=== PATIENT | male | born 1990 | race Caucasian/White ===

== ENCOUNTER 2023-02-08 08:30 | Outpatient (CLI) | payer BC, SELFPAY | END 2023-02-08 08:31 | disposition home or self-care (01) | LOC: NFLDREF 02-11 14:36 | PROVIDERS: PCP Family Medicine; Referring Provider Family Medicine; Visit Provider Family Medicine | DX: Z13.1 Encounter for screening for diabetes mellitus (principal); Z13.6 Encounter for screening for cardiovascular disorders | CPT/HCPCS: 80061; 82947 ==

== ENCOUNTER 2024-05-20 08:21 | Outpatient (CLI) | payer BC, SELFPAY | END 2024-05-20 08:22 | disposition home or self-care (01) | LOC: NFLDREF 05-23 08:27 | PROVIDERS: PCP Family Medicine; Referring Provider Family Medicine; Visit Provider Family Medicine | DX: E78.5 Hyperlipidemia, unspecified (principal) | CPT/HCPCS: 80061 ==

== ENCOUNTER 2025-02-26 08:35 | Outpatient (CLI) | payer BC, SELFPAY | END 2025-02-26 08:36 | disposition home or self-care (01) | LOC: NFLDREF 03-04 16:35 | PROVIDERS: PCP Family Medicine; Referring Provider Family Medicine; Visit Provider Family Medicine | DX: R74.8 Abnormal levels of other serum enzymes (principal) | CPT/HCPCS: 80061 ==

== ENCOUNTER 2025-05-16 20:38 | Emergency (ER) | payer OTHER, BC, SELFPAY ==
--- OUTSIDE RECORDS SUMMARY | 2025-05-14 18:14 | XMS_ITS | Encounter Summary ---
Author Organization [facility] Address [address] [place] [address] Care Team Providers Care Transformation Consultant Name Role Phone [facility]- Primary Care Provider Reason for Visit * Reason Comments Burn Encounter Details Date Type Department Care Team (Late st Contact Info) Description 05/14/2025 6:14 PM CDT - 05/14/2025 8:23 PM CDT Emergency [facility] Emergency Dept [address] [place] [address] Ashely Villa MD [facility] [address] [place] [address] Partial thickness burn of left forearm, initial encounter (Primary Dx); Superficial burn of right forearm, initial encounter; Superficial burn of chest wall, initial encounter; Partial thickness burn of face, initial encounter; Partial thickness burn of neck, initial encounter Discharge Disposition: Home or Self Care Social History Tobacco Use Types Packs/Day Years Used Date Smoking Tobacco: Every Day Cigarettes Comments:I'm only 22 gonna l juan my life to the fullest Alcohol Use Standard Drinks/Week Comments No 0 (1 standard drink = 0.6 oz pur e alcohol) Sex and Gender Information Value Date Recorded Sex Assigned at Not on file Legal Sex Male 4:23 AM BUSINESS SOLUTIONS CONSULTANT Gender Identity Not on file Sexual Orientation Not on file documented as of this encounter Last Filed Vital Signs Vital Sign Reading Time Taken Comments Blood Pressure 150/104 05/14/2025 8:10 PM CDT Pulse 79 05/14/2025 8:10 PM CDT Temperature 36.9 C (98.4 F) 05/14/2025 6:14 PM CDT Respiratory Rate 18 05/14/2025 6:14 PM CDT Oxygen Saturation 96% 05/14/2025 8:10 PM CDT Inhaled Oxygen Concentration - - Weight 89.6 kg (197 lb 8.5 oz) 05/14/2025 6:14 P M CDT Height 175.3 cm (5' 9) 05/14/2025 6:14 PM CDT Body Mass Index 29.17 05/14/2025 6:14 PM CDT documented in this encounter Discharge Instructions * Discharge Instructions* Ashely Villa MD - 05/14/2025 8:12 PM CDT Keep dressings in place overnight. Then gently cleanse the area daily with water and mild soap. Apply bacitracin daily and nonstick dressing. If pain uncontrolled, fever or signs of infection (spreading redness or drainage) seek care in the emergency department right away. Take ibuprofen 600 mg 3x per day as needed for pain. This will provide both pain control and fight against inflammation. Take tylenol 1000mg 3x per day as needed for pain. Do not take more than 3000mg tylenol in 24 hours. Use oxycodone as directed as needed for additional pain control. Opioid Medication Information You have been given a prescription for an opioid (narcotic) pain medicine and/or have received a pain medicine while here in the Emergency Department. These medicines can make you drowsy or impaired.You must not drive, operate dangerous equipment, or engage in any other dangerous activities while taking these medications. If you drive while taking these medications, you could be arrested for driving under the influence (DUI). Do not drink any alcohol while you are taking these medications. Opioid pain medications can cause addiction. If you have a history of chemical dependency of any type, you are at a higher risk of becoming addicted to pain medications. Only take these prescribed medications to treat your pain when all other options have been tried. Take it for as short a time andas few doses as possible. Store your pain pills in a secure place, as they are frequently stolen and provide a dangerous opportunity for children or visitors in your house to start abusing these powerful medications. We will not replace any lost or stolen medicine. If you do not finish your medication, it is a good idea to get rid of it but please do not flush itdown the toilet. Please dispose of the remaining medication at a local pharmacy or law enforcement facility. The [place] [employer] has additional information on medication disposal: h ttps://[email or web address] electrician.[facility].or.us/living-green/clzsdxxh-rlzyrozg-ikhbhpatylu. Many prescription pain medications contain Tylenol?? (acetaminophen), including Vicodin??, Tylenol #3??, [place]??, Lortab??, and Percocet??. You should not take any extra pills of Tylenol?? if you areusing these prescription medications or you can get very sick. Do not ever take more than 3000 mg of acetaminophen in any 24 hour period. All opioids tend to cause constipation. Drink plenty of water and eat foods that have a lot of fiber, such as fruits, vegetables, prune juice, apple juice and high fiber cereal. Take a laxative if you don???t move your bowels at least every other day. Miralax??, Milk of Magnesia, Colace??, or Senna?? can be used to keep you regular. * Attachments The following attachments cannot be sent through Care Everywhere. * Tavares (South African) documented in this encounter Medications at Time of Discharge oxyCODONE (ROXICODONE) 5 MG tablet Take 1 tablet (5 mg) by mouth every 4 hours as needed for severe pain. 12 tablet 05/14/2025 albuterol (PROVENTIL) (5 MG/ML) 0.5% nebulizer solution Take 5 mg/hr by nebulization every 6 hours as needed. HYDROcodone-acet aminophen 5-325 MG per tabletIndication s:Left varicocele Take 1 tablet by mouth every 6 hours as needed for pain. 30 tablet 0 12/24/2012 ibuprofen (ADVIL,MOTRIN) 200 MG tabletIndication s:Left varicocele Take 1-2 tablets by mouth every 6 hours as needed for other (mild pain). 100 tablet 0 12/24/2012 loratadine-pseud oePHEDrine (CLARITIN-D 24-HOUR) 10-240 MG per tablet Take 1 tablet by mouth daily. documented as of this encounter Progress Notes * Ashely Villa MD - 05/14/2025 6:23 PM CDT Attached media from the original note were not included. documented in this encounter ED Notes * Ofelia Barth RN - 05/14/2025 8:22 PM CDT Pt declining IV pain meds due to needing to drive home. * Ashely Villa MD - 05/14/2025 6:28 PM CDT Images from the original note were not included. Emergency Department Note History of Present Illness Chief Complaint Burn HPI Alexx Ro is a 35 year old male with a history of hyperlipidemia presenting with a burn. The patient reports 35 minutes ago (1739) his glove slipped and he spilled full temperature grease on himself at work. The grease made impact with his left and right dorsal regions of his forearms, left upper chest, and mildly on his face. He denies chest pain or breathing issues. Nothing spilled in his m outh. His last tetanus shot 2023 per [facility]. Independent Historian None Review of External Notes Past Medical History Medical History and Problem List Arthritis Attention deficit disorder with hyperactivity Gastritis Hyperlipidemia Hx of peptic ulcer Sleep disorder Medications albuterol (PROVENTIL) (5 MG/ML) 0.5% nebulizer solution fluconazole HYDROcodone-acetaminophen 5-325 MG per tablet ibuprofen (ADVIL,MOTRIN) 200 MG tablet loratadine-pseudoePHEDrine (CLARITIN-D 24-HOUR) 10-240 MG per tablet Surgical History EGD combined Orthopedic surgery Varicocelectomy Physical Exam Patient Vitals for the past 24 hrs: Temp Pulse Resp SpO2 Height Weight 05/14/25 1814 98.4 ??F (36.9 ??C) 98 18 99 % 1.753 m (5' 9) 89.6 kg (197 lb 8.5 oz) Physical Exam Gen: alert CV: RRR Extremities- burn to the bilateral forearms as pictured- no circumferential tavares, 2+ radial pulsesBUE Mouth- superficial burn to the right lateral lip, no intraoral burn or lesions Diagnostics ED Course Medications Administered Medications acetaminophen (TYLENOL) tablet 650 mg (has no administration in time range) ibuprofen (ADVIL/MOTRIN) tablet 600 mg (has no administration in time range) Procedures Procedures Discussion of Management [facility] burn MD ED Course ED Course as of 05/15/25 0013 [facility] May 14, [id number] I obtained the history and examined the patient as noted above. [address] Metcalf from [facility] regarding the patient's presentation and planof care. 1928 I rechecked and updated the patient. Medical Decision Making / Diagnosis ZANE Alexx Ro is a 35 year old male presents for evaluation of splash burn from grease. There is combination of superficial and partial-thickness tavares to bilateral forearms as well as splash tavares to the upper chest anterior neck and right lateral face. There does not appear to be any burn insidethe mouth. There was no associated fire or inhalation injury. Patient did have some evolution of the burn to a deeper red color in the emergency department particularly on the left arm. I consulted with the burn physician from [facility]. He will see the patient tomorrow in consultation via telehealth. I described the size and nature of the tavares and together we agreed the patient was appropriate for outpatient management. The cool compresses were placed to the tavares upon ED arrival. The tavares were then cleansed by the compliance field technician and bacitracin was applied. Wounds were dressed. Tetanus current. Instructions to patient: Keep dressings in place overnight. Then gently cleanse the area daily with water and mild soap. Apply bacitracin daily and nonstick dressing. If pain uncontrolled, fever or signs of infection (spreading redness or drainage) seek care in the emergency department right away. Take ibuprofen 600 mg 3x per day as needed for pain. This will provide both pain control and fight against inflammation. Take tylenol 1000mg 3x per day as needed for pain. Do not take more than 3000mg tylenol in 24 hours. Use oxycodone as directed as needed for additional pain control. Disposition The patient was discharged. Diagnosis ICD-10-CM 1. Partial thickness burn of left forearm, initial encounter T22.212A 2. Superficial burn of right forearm, initial encounter T22.111A 3. Superficial burn of chest wall, initial encounter T21.11XA 4. Partial thickness burn of face, initial encounter T20.20XA 5. Partial thickness burn of neck, initial encounter T20.27XA Discharge Medications Discharge Medication List as of 05/14/2025 8:16 PM START taking these medications Details oxyCODONE (ROXICODONE) 5 MG tablet Take 1 tablet (5 mg) by mouth every 4 hours as needed for severepain., Disp-12 tablet, R-0, InstyMeds Scribe Disclosure: I, Cady Dale, am serving as a scribe at 6:28 PM on 05/14/2025 to document services personally performed by Ashely Villa MD, based on my observations and the provider's statementsto me. Ashely Villa MD 05/15/25 0019 * Suzanne Hooper RN - 05/14/2025 6:13 PM CDT Patient has tavares on both arms, chest, and his face from fryer grease that splash on him. Triage Assessment (Adult) Row Name 05/14/25 1813 Triage Assessment Airway WDL WDL Respiratory WDL Respiratory WDL WDL Peripheral/Neurovascular WDL Peripheral Neurovascular WDL WDL Cognitive/Neuro/Behavioral WDL Cognitive/Neuro/Behavioral WDL WDL documented in this encounter Plan of Treatment Not on file documented as of this encounter Procedures Procedure Name Priority Date/Time Associated Diagnosis Comments EXTRA TUBE STAT 05/14/2025 6:20 PM CDT EXTRA PURPLE TOP TUBE STAT 05/14/2025 6:20 PM CDT EXTRA GREEN TOP (LITHIUM HEPARIN) TUBE STAT 05/14/2025 6:20 PM CDT EXTRA RED TOP TUBE STAT 05/14/2025 6: 20 PM CDT EXTRA BLUE TOP TUBE STAT 05/14/2025 6 :20 PM CDT documented in this encounter Results * Extra Purple Top Tube (05/14/2025 6:20 PM CDT) Hold Specimen [facility] 05/14/2025 7:31 PM CDT [facility] Blood VENOUS LINE / Unknown Venipuncture / Unknown 05/14/2025 6:20 PM CDT 05/14/2025 6:27 PM CDT us Ashely Villa MD LAB - BLOOD ORDE DC Final Result [facility] Lab [address] Lab (1st floor, no room number) [address] * Extra Green Top ([place] Heparin) Tube (05/14/2025 6:20 PM CDT) Hold Specimen [facility] 05/14/2025 7:31 PM CDT [facility] Blood VENOUS LINE / Unknown Venipuncture / Unknown 05/14/2025 6:20 PM CDT 05/14/2025 6:27 PM CDT us Ashely Villa MD LAB - BLOOD ORDE DC Final Result [facility] Lab [address] Lab (1st floor, no room number) [address] * Extra Red Top Tube (05/14/2025 6:20 PM CDT) Hold Specimen [facility] 05/14/2025 7:31 PM CDT [facility] Blood VENOUS LINE / Unknown Venipuncture / Unknown 05/14/2025 6:20 PM CDT 05/14/2025 6:27 PM CDT us Ashely Villa MD LAB - BLOOD ORDE RABTOMA Final Result [facility] [address] Lab (1st floor, no room number) [place] [address], [facility] * Extra Blue Top Tube (05/14/2025 6:20 PM CDT) [facility] Signature Hold Specimen [facility] 05/14/2025 7:31 PM CDT LABORATORY Blood VENOUS LINE / Unknown Venipuncture / Unknown 05/14/2025 6:20 PM CDT 05/14/2025 6:27 PM CDT Ashely Villa MD LAB - BLOOD REBECCA IRWIN Final Result Performing Organization Address City/[facility]/ZIP Co de Phone Number [facility] [address] Lab (1st floor, no room number) [place] [address], [facility] documented in this encounter Visit Diagnoses Diagnosis Partial thickness burn of left forearm, initial encounter- Primary Superficial burn of right forearm, initial encounter Superficial burn of chest wall, initial encounter Partial thickness burn of face, initial encounter Partial thickness burn of neck, initial encounter documented in this encounter Administered Medications Inactive Administered Medications - up to 3 most recent administrations Medication Order MAR Action Action Date Dose Rate Site acetaminophen (TYLENOL) tablet 650 mg 650 mg, Oral, ONCE, On [place] 05/14/25 at 1830, For 1 dose, Maximum acetaminophen dose from all sources = 75 mg/kg/day not to exceed 4 grams/day. $Given 05/14/2025 6:32 PM CDT 650 mg bacitracin ointment Topical, ONCE, On Sun05/14/25 at 1900, For 1 dose, Apply to tavares $Given 05/14/2025 8:06 PM CDT ibuprofen (ADVIL/MOTRIN) tablet 600 mg 600 mg, Oral, ONCE, On [place] 05/14/25 at 1830, For 1 dose, Give with food. $Given 05/14/2025 6:32 PM CDT 600 mg documented in this encounter Active and Recently Administered Medications Times are shown in CDT. Scheduled Medication Order 05/12/2025 05/13/2025 05/14/2025 acetaminophen (TYLENOL) tablet 650 mg (COMPLETED) 650 mg, Oral, ONCE, On [place] 05/14/25 at 1830, For 1 dose, Maximum acetaminophen dose from all sources = 75 mg/kg/day not to exceed 4 grams/day. 183 ($Given - Provi cedric: Mohit Mike RN) bacitracin ointment (COMPLETED) Topical, ONCE, On [place] 05/14/25 at 1900, For 1 dose, Apply to tavares 2005 ($Given - Provi cedric: Ofelia Barth RN) ibuprofen (ADVIL/MOTRIN) tablet 600 mg (COMPLETED) 600 mg, Oral, ONCE, On [place] 05/14/25 at 1830, For 1 dose, Give with food. 183 ($Given - Provi cedric: Mohit Mike RN) documented in this encounter Care Teams Transformation Consultant Relationship Specialty Start Date End Date [facility]- [address] [place] [address] PCP - General 05/14/25 documented as of this encounter
--- OUTSIDE RECORDS SUMMARY | 2025-05-16 20:41 | XMS_ITS | Clinical Summary ---
Author Organization [facility] Address [address] [place] [address] Care Team Providers Care Sampling Theory Teacher Name Role Phone Latasha Kern Primary Care Provider Allergies Active Allergy Reactions Criticality Noted Date Comments Banana Angioedema 10/20/2011 Latex Rash 11/18/2012 Ketorolac Confusion Medium 05/26/2019 Medications fluconazole (Diflucan) 200 mg tabletIndication s:Onychomycosis Take one tablet once weekly for 6 months. 26 Tablet 12/05/2023 Active Active Problems Problem Noted Date Diagnosed Date Tobacco dependence 05/26/2019 Allergic rhinitis, cause unspecified 12/18/2011 Acne vulgaris 07/20/2010 Sleep disorder 07/12/2010 Acute gastritis without mention of hemorrhage Overview (07/13/2010): EGD 07/2010 Reactive gastropathy and eosinophilic esophagitis ADHD (attention deficit hyperactivity disorder) 05/28/2009 Resolved Problems Problem Noted Date Diagnosed Date Resolved Date Peptic ulcer, unspecified si te, unspecified as acute or chronic, without mention of hemorrhage, perforation, or obstruction 06/14/2010 07/13/2010 Immunizations Immunization Administration Dates Next Due Hepatitis B (Adult) 09/15/2003 Hepatitis B (Peds) 09/15/2003 Influenza, IIV3 (Age >=3 years) 10/13/2010 MENINGOCOCCAL VACCINE 2 VIAL [id number] (MENVEO) 1 MMR 09/15/2003 Td (Age >=7 Years) 09/15/2003 Td, Preservative Free (age >= 7 Years) 1 Tdap 09/15/2003 Tuberculin (PPD) 08/31/2014 Family History Medical History Relation Name Comments Psychiatric illness Brother Seizures Brother Alcoholism Father in remission Diabetes Father Diabetes Maternal Grandfather Other Other No known family hx of anesthesia rxn, bleeding disorders, or blood clots Diabetes Paternal Grandfather Diabetes Paternal Grandmother Heart Disease No Family History Hyperlipidemia No Family History Relation Name Status Comments Brother Alive Father Alive Maternal Grandfather Mother Alive Other Paternal Grandfather Paternal Grandmother Social History Tobacco Use Types Packs/Day Years Used Date Smoking Tobacco: Every Day Cigarettes Smokeless Tobacco: Former Tobacco Cessation:Ready to Q uit: No; Counseling Given: Yes Comments:E-Cigarettes previous use Alcohol Use Standard Drinks/Week Comments No 0 (1 standard drink = 0.6 oz pur e alcohol) PHQ-2 Answer Date Recorded PHQ-2 Score 0 06/18/2019 Social Connections Answer Date Recorded Frequency of Communication with Friends and Fami ly Not on file 10/08/2021 Financial Resource Strain Answer Date R ecorded Difficulty of Paying Living Expenses Not on file 10/08/2021 Difficulty of Paying Living Expenses Not on file 10/08/2021 Sex and Gender Information Value Date Recorded Sex Assigned at Not on file Legal Sex Male 5:24 AM PHLEBOTOMIST PRN Gender Identity Not on file Sexual Orientation Not on file Obstetrics History Last Filed Vital Signs Vital Sign Reading Time Taken Comments Blood Pressure 124/79 12/05/2023 10:42 AM PHLEBOTOMIST PRN Pulse 88 12/05/2023 10:42 AM PHLEBOTOMIST PRN Temperature 36.5 C (97.7 F) 01/24/2021 9:33 AM CDT Respiratory Rate - - Oxygen Saturation 98% 12/05/2023 10:42 AM PHLEBOTOMIST PRN Inhaled Oxygen Concentration - - Weight 80.3 kg (177 lb) 12/05/2023 10:42 AM PHLEBOTOMIST PRN Height 173.5 cm (5' 8.31) 01/24/2021 9:33 AM CD T Body Mass Index 26.67 01/24/2021 9:33 AM CDT Plan of Treatment Health Maintenance Due Date Last Done Comments Hepatitis B series for 19+ ( 2 of 3 - 3-dose series) 10/13/2003 09/15/2003, 09/15/2003 HIV for age 15-65 2007 Hepatitis C screening for ag e 18-79 2010 Pneumococcal series for age 6-49 (1 of 2 - PCV) 2011 Depression screening for age 12+ 06/18/2020 06/18/2019, 06/11/2019, 06/11/2019, Additional history exists Tetanus booster 01/24/2021 01/24/2011, 1206/2003, 09/15/2003 BMI (ht and wt on same day) for age 18+ 01/24/2022 01/24/2021, 12/13/2020, 05/26/2019, Additional history exists COVID-19 vaccine series ( - 2023- season) 2024 Influenza Vaccine (#1) 2025 10/13/2010 Insurance [facility] [place] [id number] [address] [address] [place] [address] Care Teams Sampling Theory Teacher Relationship Specialty Start Date End Date Latasha Kern PA [address] [place] [address] PCP - General Family Practice 10/14/12
--- OUTSIDE RECORDS SUMMARY | 2025-05-16 20:41 | XMS_ITS | Clinical Summary ---
Author Organization [facility] Address [address] [place] [address] Care Team Providers Care Big Data Software Engineer Name Role Phone Unavailable Primary Care Provider Unavailabl e Source Comments Patient records contain information from all sites at [facility]. For routine questions regarding patient records, call [phone] during business hours, M-F 8:00 AM - 5:00 PM Central Time. Record requests for emergency care only can be directed to [phone] at any time.[facility] Allergies Active Allergy Reactions Criticality Noted Date Comments Banana Anaphylaxis High 02/06/2024 Latex Anaphylaxis High 02/06/2024 Pollen Extracts Cough 02/06/2024 Medications * This document contains information received from the source organization and may not represent a complete record from that organization. fluconazole (DIFLUCAN) 200 mg tablet Take 200 mg by mouth daily. 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 05/15/2024 Family History Medical History Relation Name Comments Diabetes Father 1 Sam Diabetes Father 2 Sam Diabetes Father 3 Sam Learning disorder Son 1 Booker Learning disorder Son 2 Ney Learning disorder Son 3 Reis Learning disorder Son 4 Booker Learning disorder Son 5 Ney Learning disorder Son 6 Reis Learning disorder Son 7 Booker Learning disorder Son 8 Ney Learning disorder Son 9 Reis Relation Name Status Comments Father 1 Sam Alive Father 2 Sam Alive Father 3 Sam Alive Son 1 Booker Alive Son 2 Ney Alive Son 3 Reis Alive Son 4 Booker Alive Son 5 Ney Alive Son 6 Reis Alive Son 7 Booker Alive Son 8 Ney Alive Son 9 Reis Alive Social History Tobacco Use Types Packs/Day Years Used Date Smoking Tobacco: Former Cigarettes 0.3 20.8 0 10/08/2006 - 09/07/2024 Smokeless Tobacco: Never Comments:Vape Alcohol Use Standard Drinks/Week Comments Never 0 (1 standard drink = 0.6 oz pur e alcohol) [facility] Utilities Answer Date Recorded In the past 12 months has th e electric, gas, oil, or water company threatened to shut off services in your home? Yes 04/23/2024 Hunger Vital Sign Answer Date Recorded Within the past 12 months, y ou worried that your food would run out before you got the money to buy more. Never true 04/23/20 24 Within the past 12 months, t he food you bought just didn't last and you didn't have money to get more. Never true 04/23/2024 PRAPARE - Transportation Answer Date Re corded In the past 12 months, has l ack of transportation kept you from medical appointments or from getting medications? No 04/07 In the past 12 months, has l ack of transportation kept you from meetings, work, or from getting things needed for daily living? No 04/23/2024 Housing Stability Answer Date Recorded What is your living situation today? I have a [facility] place to live 04/23/2024 Sex and Gender Information Value Date Recorded Sex Assigned at Male 02/06/2024 10:37 AM CDT Legal Sex Male 5:29 PM INSIDE SALES ADVISOR Gender Identity Male 02/06/2024 10:37 AM CDT Sexual Orientation Straight 02/06/2024 10 :37 AM CDT Last Filed Vital Signs Vital Sign Reading Time Taken Comments Blood Pressure 108/62 02/14/2013 8:45 AM CDT Pulse - - Temperature - - Respiratory Rate - - Oxygen Saturation - - Inhaled Oxygen Concentration - - Weight 73.4 kg (161 lb 13.1 oz) 02/14/2013 8:45 AM CDT Height 178 cm (5' 10.08) 02/14/2013 8:45 AM CDT Body Mass Index 23.17 02/14/2013 8:45 AM CDT Plan of Treatment Health Maintenance Due Date Last Done Comments Hepatitis C Screening 1992 Hepatitis B Vaccines (2 of 3 - 3-dose series) 10/13/2003 09/15/2003 HPV Vaccines (1 - 3-dose SCDM series) 2019 COVID-19 Vaccine (2023-25 season) 2024 Depression Screening (Annual PHQ-2) 10/08/2024 Influenza Vaccine (#1) 2025 10/13/2010 DTaP,Tdap,and Td Vaccines (4 - Td or Tdap) 06/23/2034 06/23/2024, 01/24/2011, 09/15/2003, Additional history exists IPV Vaccines Aged Out No longer eligi ble based on patient's age to complete this topic Pneumococcal vaccine (0-49 years) Aged Out No longer eligible based on patient's age to complete this topic Insurance [facility] [place] [address]
--- OUTSIDE RECORDS SUMMARY | 2025-05-16 20:41 | XMS_ITS | Encounter Summary ---
Author Organization [facility] Address [address] [place] [id number] Care Team Providers Care Fast Brim Pouncer Name Role Phone [facility]- Primary Care Provider Encounter Details Date Type Department Care Team (Latest Contact Info) Description 05/14/2025 Travel Social History Tobacco Use Types Packs/Day Years Used Date Smoking Tobacco: Every Day Cigarettes Comments:I'm only 22 gonna l juan my life to the fullest Alcohol Use Standard Drinks/Week Comments No 0 (1 standard drink = 0.6 oz pur e alcohol) Sex and Gender Information Value Date Recorded Sex Assigned at Not on file 

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
[2025-05-16 21:20] VITALS: BP 147/96; PULSE 78; RESP 18; TEMP 36.4; O2SAT 97; BMI 29.2
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
[2025-05-16 22:08] VITALS: BP 140/102; PULSE 88; RESP 18; O2SAT 96
== END 2025-05-16 23:03 | disposition home or self-care (01) ==
PROVIDERS: Emergency Provider Family Medicine; PCP Family Medicine
DX: T22.212A Burn of second degree of left forearm, initial encounter (principal); X10.2XXA Contact with fats and cooking oils, initial encounter
CPT/HCPCS: 99283; 99284